=== PATIENT | male | born 1940 | race Caucasian/White ===

== ENCOUNTER 2019-04-08 10:38 | Inpatient (IN) ==
[2019-04-08] MEDS ORDERED: PIPERACILLIN/TAZOBACTAM 4.5 GM/120 ML BAG IV ONE (11:45)
[2019-04-08] MEDS ORDERED: VANCOMYCIN CONSULT ACTIVE PRN ×2 (11:45→14:32)
[2019-04-08] MEDS ORDERED: VANCOMYCIN HCL 1,750 MG in SODIUM CHLORIDE 0.9% 500 ML IV ONE (11:45)
[2019-04-08] MEDS ORDERED: SODIUM CHLORIDE 0.9% 1000ML 1,000 ML IV ONE (11:45)
[2019-04-08] MEDS ORDERED: ONDANSETRON INJ 2 MG/ML 2 ML VIAL IV STA ×2 (11:45→13:17)
[2019-04-08] MEDS ORDERED: PIPERACILL/TAZOBAC CONSULT ACTIVE PRN ×2 (11:45→14:32)
--- NOTE | 2019-04-08 11:45 | Emergency Department Note ---
History of Present Illness General Chief Complaint: Infection, Wound Stated Complaint: INFECTION ON LEFT FOOT AND TOES,OPEN WOUND Source: patient Mode of arrival: ambulatory Limitations: no limitations History of Present Illness Onset (ago): month(s) (3) Extremity Location: Left: foot Place: + home Patient tetanus UTD: Yes Context: + other Associated symptoms: + pain, + nausea/vomiting and + other (Weakness, 12 pound weight loss) This 78-year-old male patient presents emergency department today, ambulatory, after being seen and evaluated by his microwave supervisor, Dr. Anne. The patient is currently being treated as an outpatient for an osteomyelitis of the left foot, and did have surgery of the left fifth metatarsal on January 12 and February 25. The patient states he has been on Cipro and Bactrim after consultation with Dr. Dias of infectious disease and continues to have worsening pain which is spreading, redness, difficulty with wound healing, and also reports feeling weak with nausea and vomiting which developed approximately 5 days ago. The patient does report a 12 pound weight loss in the past 2 weeks due to how he is feeling. The patient was seen by his microwave supervisor earlier today and sent to the ED for admission for surgery tonight. The patient is a type II diabetic and has not gotten his medications today. He last ate a protein shake this morning. The patient denies any fevers, but does report body aches, chills, the nausea, and vomiting. I did speak with the patient's microwave supervisor, Dr. nAne. He advised that the patient is currently being managed for an osteomyelitis of the fifth metatarsal and digit and is failing outpatient oral therapy. He requested the patient remain n.p.o., get a noncontrast CT scan to evaluate for possible osteomyelitis in the first digit and get admitted for surgery this evening. He did request we start the patient on bank and Zosyn as well. Home Medications Home Medications Medication Instructions Recorded Confirmed Type finasteride [Proscar] 5 mg PO QAM 02/10/19 04/08/19 History glimepiride 2 mg PO BID 02/10/19 04/08/19 History ibuprofen 600 mg PO Q6H PRN 02/10/19 04/08/19 History lisinopril 5 mg PO QPM 02/10/19 04/08/19 History magnesium 250 mg PO BID 02/10/19 04/08/19 History metformin 500 mg PO BID 02/10/19 04/08/19 History acetaminophen-codeine 1 tab PO Q8H PRN 04/08/19 04/08/19 History ciprofloxacin HCl 500 mg PO BID 04/08/19 04/08/19 History sulfamethoxazole-trimethoprim 1 tab PO BID 04/08/19 04/08/19 History Allergies Allergy/AdvReac Type Severity Reaction Status Date / Time No Known Allergies Allergy Verified 02/10/19 10:55 Past Med/Surg History Medical History BPH (benign prostatic hyperplasia) DVT (deep venous thrombosis) 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-NO ISSUES SINCE Diabetes mellitus, type 2 Hypertension Surgical History Fusion of spine LUMBAR-2011 H/O excision of mass CYST REMOVAL VERTEBRAE H/O foot surgery LEFT 12/2018 [facility]-POST OP INFECTION DEVELOPED History of colonoscopy X MULTIPLE History of total knee replacement R/L Social History Preferred Language: [place] Communication Ability: Effective Beliefs That Will Affect Care: None Current Living Situation: Alone Feels Safe at Home: Yes Smoking Status: Never smoker Second Hand Exposure: No Hx Alcohol Use: No Hx Substance Use: No Review of Systems A total of 10 systems reviewed and were otherwise negative Physical Exam Vital Signs Vital Signs - 24 hr 04/08/19 10:53 04/08/19 12:37 04/08/19 12:38 Temperature 36.7 C Temperature Source Oral Sepsis Recent Fever Within 48 Hours No Sepsis New/Unexplained Change in Mental Status No Sepsis Action Taken by Nursing No Action Required Pulse Rate 80 64 64 Pulse Rate from SpO2 Sensor 64 Pulse Rhythm Regular Respiratory Rate 20 20 20 Respiratory Effort / Characteristics Non-Labored Spontaneous Respiratory Depth Normal Blood Pressure 99/63 L 95/51 L Blood Pressure Mean 75 65 Blood Pressure Position Sitting Pulse Oximetry 98 99 98 Oxygen Delivery Method Room Air Room Air 04/08/19 12:39 04/08/19 12:40 04/08/19 12:50 Temperature Temperature Source Sepsis Recent Fever Within 48 Hours Sepsis New/Unexplained Change in Mental Status Sepsis Action Taken by Nursing Pulse Rate 64 63 65 Pulse Rate from SpO2 Sensor 63 63 65 Pulse Rhythm Respiratory Rate 21 21 16 Respiratory Effort / Characteristics Respiratory Depth Blood Pressure Blood Pressure Mean Blood Pressure Position Pulse Oximetry 99 98 99 Oxygen Delivery Method 04/08/19 13:06 04/08/19 13:08 04/08/19 13:10 Temperature Temperature Source Sepsis Recent Fever Within 48 Hours Sepsis New/Unexplained Change in Mental Status Sepsis Action Taken by Nursing Pulse Rate 69 68 68 Pulse Rate from SpO2 Sensor 68 68 Pulse Rhythm Respiratory Rate 19 19 18 Respiratory Effort / Characteristics Respiratory Depth Blood Pressure 160/133 H Blood Pressure Mean 142 Blood Pressure Position Pulse Oximetry 99 100 Oxygen Delivery Method VITALS: Vitals are noted on the nurse's note and reviewed by myself. Vital signs stable. GENERAL: This is a 78-year-old white male, in no acute distress, nondiaphoretic, well-developed well-nourished. SKIN: Mild erythema of the lateral aspect of the distal left foot and fourth and fifth metatarsals. There is some purulence between the fourth and fifth metatarsals with bandaging in place. The previous incision site on the lateral aspect of the foot does appear to be healing nicely. There is tenderness extending into the fourth and fifth metatarsal as well as the fourth and fifth digits. The skin was otherwise without rashes, erythema, edema, or bruising. There is no tenting of the skin. Capillary reflex less than 2 seconds. HEAD: Normocephalic atraumatic. EARS: External auditory canals clear, tympanic membranes pearly baxter without erythema or effusion bilaterally. EYES: Pupils equal round and reactive to light and accommodation. Conjunctivae without injection, sclerae without icterus. Extraocular movements intact. NOSE: Patent, turbinates without inflammation or discharge. No sinus tenderness. MOUTH: Mucous membranes moist. Tonsils are not enlarged. Pharynx without erythema or exudate. Uvula midline. Airway patent. Tongue does not deviate. NECK: Supple without nuchal rigidity. No lymphadenopathy. No thyromegaly. Cervical spine is nontender. No JVD. HEART: Regular rate and rhythm without murmurs gallops or rubs. LUNGS: Clear to auscultation bilaterally without wheezes, rales or rhonchi. No dullness to percussion. No retractions or accessory muscle use. ABDOMEN: Positive bowel sounds x 4. Normal tympanic percussion. Soft, nontender, without masses or organomegaly. Barrientos sign negative. No guarding or rebound tenderness. MUSCULOSKELETAL: No muscle atrophy, erythema, or edema noted. Full range of motion without joint tenderness in all extremities. No tenderness to palpation. Limping gait. Strength 5/5 throughout. NEURO: Patient was alert and oriented to person place and time. Normal sensation to light and sharp touch. Deep tendon reflexes 2+ throughout. No focal neurological deficits. Course The patient was seen and evaluated as above. I spoke with Dr. Anne. See HPI for details. [facility] Provided her with Dr. Anne's contact information. IV access obtained, labs drawn. Imaging performed and reviewed by myself and radiologist as above. Labs reviewed by myself. I discussed the findings with the patient at bedside. I discussed the case with my attending. She did see and evaluate the patient. [facility] Please see hospitalist and podiatry dictation regarding ongoing management care of this patient. Administered Medications Discontinued Medications Piperacillin Sod/Tazobactam Sod (Zosyn) 4.5 gm in 120 mls @ 240 mls/hr IV NOW ONE Stop: 04/08/19 12:14 Last Admin: 04/08/19 12:31 Dose: 240 mls/hr Documented by: [id number] Sodium Chloride (Nss 1000ml) 1,000 mls @ 999 mls/hr IV .Q1H1M ONE Stop: 04/08/19 12:45 Last Admin: 04/08/19 12:31 Dose: 999 mls/hr Documented by: [id number] Ondansetron HCl (Zofran) 4 mg IV NOW STA Stop: 04/08/19 11:46 Last Admin: 04/08/19 12:31 Dose: 4 mg Documented by: [id number] Medical Decision Making Differential Diagnosis + laceration, + abscess, + abrasion, + avulsion of skin, + fracture, + dislocation, + joint compromise, + infection, + soft tissue injury, + vascular compromise and + compartment syndrome cellulitis, abscess, DVT, superficial thrombus, septic joint, necrotizing fasciitis, burn, dermatitis, impetigo, erythema multiforme, bite, osteomyelitis, Voss-Cody Syndrome, gangrene, sepsis, malignancy, and others Home Medications Current Medication List: was personally reviewed by me Laboratory Data Attestation: I reviewed the patient's lab results. Mild anemia with a hemoglobin of 12.6. No significant leukocytosis. No thrombocytopenia. Coags normal. Creatinine elevated at 2.36. Electrolytes without significant abnormality. ESR elevated at 27. CRP elevated at 0.32. Lactic acid 1.3. Blood cultures pending. Result diagrams: 04/08/19 12:28 04/08/19 12: Lab Results 04/08/19 04/08/19 04/08/19 Range/Units 12:28 12: 12: WBC 4.32 L (4.8-10.8) K/uL RBC 4.05 L (4.7-6.1) M/uL Hgb 12.6 L (14.0-18.0) g/dL Hct 36.8 L (42-52) % MCV 90.9 (80-100) fL MCH 31.1 (25-34) pg MCHC 34.2 (32-36) g/dL RDW Std Deviation 45.2 (36.4-46.3) fL RDW Coeff of Antonia 13.8 (11.5-14.5) % Plt Count 171 (130-400) K/uL MPV 8.9 (7.4-10.4) fL Immature Gran % (Auto) 0.0 % Neut % (Auto) 66.4 % Lymph % (Auto) 21.3 % [place] % (Auto) 11.6 % Eos % (Auto) 0.5 % Baso % (Auto) 0.2 % Immature Gran # (Auto) 0.00 (0.00-0.02) K/uL Neut # (Auto) 2.87 (1.4-6.5) K/uL Lymph # (Auto) 0.92 L (1.2-3.4) K/uL [place] # (Auto) 0.50 (0.11-0.59) K/uL Eos # (Auto) 0.02 (0-0.5) K/uL Baso # (Auto) 0.01 (0-0.2) K/uL ESR 27 H (0-14) mm/hr PT 10.8 (9.0-12.0) Seconds INR 1.1 (0.9-1.1) APTT 26.0 (21.0-31.0) Seconds PTT Ratio 1.0 Sodium (136-145) mmol/L Potassium (3.5-5.1) mmol/L Chloride (98-107) mmol/L Carbon Dioxide (21-32) mmol/L Anion Gap (3-11) BUN (7-18) mg/dl Creatinine (0.6-1.4) mg/dl Est Cr Clr Drug Dosing ml/min Est GFR ( Amer) Est GFR (Non-Af Amer) BUN/Creatinine Ratio (10-20) Glucose (70-99) mg/dl Lactate (0.4-2.0) mmol/L Calcium (8.5-10.1) mg/dl Total Bilirubin (0.2-1) mg/dl AST (15-37) U/L ALT (12-78) U/L Alkaline Phosphatase (45-117) U/L C-Reactive Protein (0-0.29) mg/dl Total Protein (6.4-8.2) gm/dl Albumin (3.4-5.0) gm/dl Globulin (2.5-4.0) gm/dl Albumin/Globulin Ratio (0.9-2) 04/08/19 04/08/19 Range/Units 12:28 12:28 WBC (4.8-10.8) K/uL RBC (4.7-6.1) M/uL Hgb (14.0-18.0) g/dL Hct (42-52) % MCV (80-100) fL MCH (25-34) pg MCHC (32-36) g/dL RDW Std Deviation (36.4-46.3) fL RDW Coeff of Antonia (11.5-14.5) % Plt Count (130-400) K/uL MPV (7.4-10.4) fL Immature Gran % (Auto) % Neut % (Auto) % Lymph % (Auto) % [place] % (Auto) % Eos % (Auto) % Baso % (Auto) % Immature Gran # (Auto) (0.00-0.02) K/uL Neut # (Auto) (1.4-6.5) K/uL Lymph # (Auto) (1.2-3.4) K/uL [place] # (Auto) (0.11-0.59) K/uL Eos # (Auto) (0-0.5) K/uL Baso # (Auto) (0-0.2) K/uL ESR (0-14) mm/hr PT (9.0-12.0) Seconds INR (0.9-1.1) APTT (21.0-31.0) Seconds PTT Ratio Sodium 135 L (136-145) mmol/L Potassium 5.0 (3.5-5.1) mmol/L Chloride 107 (98-107) mmol/L Carbon Dioxide 20 L (21-32) mmol/L Anion Gap 8.0 (3-11) BUN 62 H (7-18) mg/dl Creatinine 2.36 H (0.6-1.4) mg/dl Est Cr Clr Drug Dosing 27.1 ml/min Est GFR ( Amer) 29.7 Est GFR (Non-Af Amer) 25.6 BUN/Creatinine Ratio 26.2 H (10-20) Glucose 102 H (70-99) mg/dl Lactate 1.3 (0.4-2.0) mmol/L Calcium 9.1 (8.5-10.1) mg/dl Total Bilirubin 0.4 (0.2-1) mg/dl AST 23 (15-37) U/L ALT 36 (12-78) U/L Alkaline Phosphatase 85 (45-117) U/L C-Reactive Protein 0.32 H (0-0.29) mg/dl Total Protein 7.3 (6.4-8.2) gm/dl Albumin 3.7 (3.4-5.0) gm/dl Globulin 3.6 (2.5-4.0) gm/dl Albumin/Globulin Ratio 1.0 (0.9-2) Imaging Data Radiologist's Impression: XR chest 1V portable CLINICAL HISTORY: pre-op, fatigue dyspnea COMPARISON STUDY: 04/15/2013 FINDINGS: The bones soft tissues and hemidiaphragms are normal. The cardiome diastinal silhouette is normal. The lungs are clear. The pulmonary vasculature is normal. IMPRESSION: Negative chest. The above report was generated using voice recognition software. It may contain grammatical, syntax or spelling errors. Electronically signed by: Brandin Orozco M.D. 04/08/2019 12:[address] foot LT wo con CLINICAL HISTORY: 78 years-old Male presenting with hx. osteo, pre-op, spreading infxn 12/26. TECHNIQUE: Multidetector CT of the left foot was performed without the use of intravenous contrast. IV contrast: None. One or more dose lowering techniques were used consistent with the principles of ALARA (as low as reasonably achievable), including automatic exposure control, mA or kV adjustment to individual patient size, and/or use of iterative reconstruction. COMPARISON: Plain radiograph from 02/25/2019 and MR from 02/03/2019. CT DOSE (mGy.cm): The estimated cumulative dose is 202.26 mGy.cm. FINDINGS: Director Facilities Maintenance topogram: Unremarkable. Postsurgical changes of resection of the fifth metatarsal head versus osseous dissolution. No increased osseous erosion. There is medial subluxation of the proximal phalanx of the fifth toe relative to the fifth metatarsal as seen on prior exams. There is extensive regional soft tissue infiltration and overlying ulceration. The cortex of the distal fifth metatarsal is likely in continuity with the overlying ulceration. No additional site of osteolysis. Osteopenia likely present. No acute fracture or acute-appearing malalignment. Advanced degenerative changes at the ankle mortise both medially and laterally. Atherosclerosis. Diffuse fatty atrophy of the musculature. No gross evidence of a fluid collection. IMPRESSION: Chronic findings of osseous dissolution versus resection of the fifth metatarsal head with chronic subluxation at the fifth metatarsophalangeal joint. Ulceration immediately overlying the residual distal fifth metatarsal, which is likely in communication with the underlying cortex suggestive of chronic osteomyelitis. There has been no significant increase in osteolysis to suggest progression of infection. No apparent involvement of the fifth toe or an additional site. Electronically signed by: Randall Blackmon M.D. 04/08/2019 1:17 PM ECG Data Attestation: I personally reviewed and interpreted this ECG as follows: Indication: vomiting and weakness Rate (beats per minute): 67 Rhythm: normal sinus Findings: no ST elevation, no acute ischemic change and no ectopy Comparison ECG Date: from (04/01/19) Change: no significant change Blood Pressure Blood Pressure Findings: Low blood pressure MDM Narrative This 78-year-old male patient presents emergency department today with complaints of osteomyelitis in the left foot. The patient is currently being followed by Dr. Anne, podiatry. He was sent to the ED by Dr. Anne for a dmission and surgery this evening due to the osteomyelitis. He also requested IV antibiotics. I did speak with Dr. Anne and initiated preop work-up as well as IV Vanco and Zosyn. The patient's laboratory evaluation does show elevation of the inflammatory markers, but no significant leukocytosis. Lactic acid was normal and CT imaging of the foot shows chronic findings of osseous disillusion versus resection of the fifth metatarsal head with chronic subluxation at the fifth MTP joint with an ulceration immediately overlying the residual distal fifth metatarsal, suggestive of chronic osteomyelitis. The patient will be admitted under the hospitalist service for IV antibiotics and will likely undergo surgery by Dr. Anne this evening. Please see their dictations regarding ongoing management care of this patient. The chart was completed utilizing [employer] Speech voice recognition software. Grammatical errors, random word insertions, pronoun errors, and incomplete sentences are an occasional consequence of this system due to software limitations, ambient noise, and hardware issues. Any formal questions or concerns about the content, text, or information contained within the body of this dictation should be directly addressed to the provider for clarification. Impression & Plan Osteomyelitis, Weakness, Nausea & vomiting Discharge Plan Visit Data Chief Complaint: Infection, Wound Stated Complaint: INFECTION ON LEFT FOOT AND TOES,OPEN WOUND ED Provider: Rani Gomes ED Midlevel Provider: Christine Fierro Discharge Problem: Osteomyelitis, Weakness, Nausea & vomiting Patient Disposition: Admitted As Inpatient Condition: Good Discharge Instructions Interventions: ED Discharge Assessment Last Done: 04/08/19 13:15 Forms Stand Alone Forms: My [facility] Prescriptions Prescriptions: No Action acetaminophen-codeine 300-30 mg tablet 1 tab PO Q8H PRN (Reason: Pain) RF: 0 ciprofloxacin HCl 500 mg tablet 500 mg PO BID RF: 0 sulfamethoxazole-trimethoprim 800-160 mg tablet 1 tab PO BID RF: 0 glimepiride 2 mg Tablet 2 mg PO BID RF: 0 lisinopril 5 mg Tablet 5 mg PO QPM RF: 0 finasteride [Proscar] 5 mg Tablet 5 mg PO QAM RF: 0 metformin 500 mg Tablet 500 mg PO BID RF: 0 magnesium 250 mg Tablet 250 mg PO BID RF: 0 ibuprofen 200 mg Tablet 600 mg PO Q6H PRN (Reason: Pain) RF: 0 Referrals Referrals: Beny Araujo MD [Primary Care Provider] -
--- NOTE | 2019-04-08 12:08 | XRay Report ---
XR chest 1V portable CLINICAL HISTORY: pre-op, fatigue dyspnea COMPARISON STUDY: 04/15/2013 FINDINGS: The bones soft tissues and hemidiaphragms are normal. The cardiomediastinal silhouette is n ormal. The lungs are clear. The pulmonary vasculature is normal. IMPRESSION: Negative chest. The above report was generated using voice recognition software. It may contain grammatical, syntax or spelling errors. Electronically signed by: Brandin Orozco M.D. 04/08/2019 12:07 PM
[2019-04-08 12:42] LABS: Basophils # (auto) 0.01 K/uL (0-0.2); Basophils % (auto) 0.2 %; Eosinophils # (auto) 0.02 K/uL (0-0.5); Eosinophils % (auto) 0.5 %; Hematocrit (blood only) 36.8 % (42-52); Hemoglobin 12.6 g/dL (14.0-18.0); Lymphocytes # (auto) 0.92 K/uL (1.2-3.4); Lymphocytes % (auto) 21.3 %; Mean Corpuscular Hgb Conc 34.2 g/dL (32-36); Mean Corpuscular Volume 90.9 fL (80-100); Mean Platelet Volume 8.9 fL (7.4-10.4); Monocytes % (auto) 11.6 %; Neutrophils # (auto) 2.87 K/uL (1.4-6.5); Neutrophils % (auto) 66.4 %; Platelet Count 171 K/uL (130-400); RDW Coefficient of Variation 13.8 % (11.5-14.5); RDW Standard Deviation 45.2 fL (36.4-46.3); Red Blood Count 4.05 M/uL (4.7-6.1); White Blood Count 4.32 K/uL (4.8-10.8)
[2019-04-08 12:56] LABS: INR 1.1 (0.9-1.1); Prothrombin Time 10.8 Seconds (9.0-12.0)
[2019-04-08 13:01] LABS: Albumin Level 3.7 gm/dl (3.4-5.0); BUN Creatinine Ratio 26.2 (10-20); C Reactive Protein 0.32 mg/dl (0-0.29); Calcium 9.1 mg/dl (8.5-10.1); Creatinine Clr Calc Pharmacy 27.1 ml/min; Est GFR (African American) 29.7; Est GFR (Non-African American) 25.6
[2019-04-08 13:04] LABS: Bilirubin,Total 0.4 mg/dl (0.2-1); Globulin 3.6 gm/dl (2.5-4.0); Total Protein 7.3 gm/dl (6.4-8.2)
--- NOTE | 2019-04-08 13:11 | History & Physical Report ---
Date of Service April 08, 2019 Assessment & Plan (1) Wound of foot: Patient with recent surgery on 25 February presenting with worsening pain and unhealing wound. Concern for osteomyelitis. Presently afebrile, hemodynamically stable, non-toxic in appearance -Admit to medical floor -Vancomycin and Zosyn -Podiatry consultation - Dr. Anne - appreciate assistance -Pain control with Oxycodone and Morphine PRN -Zofran PRN -Gentle IVF Present on Admission?: Yes (2) Diabetes: Fairly well controlled, AIC=7.2 in December -Hold oral agents while inpatient -Lantus 5u BID with ISS Present on Admission?: Yes (3) Hypertension: Blood pressure well controlled -Continue Lisinopril -Continue to monitor Present on Admission?: Yes (4) BPH (benign prostatic hyperplasia): Symptoms well controlled -Continue Proscar F/E/N- NSS at 100mL/hr x 2 liters, monitor electrolytes and correct as needed, continue PO mag, NPO for now Ppx - SCDs/TEDS Code - DNR per discussion with patient Dispo - Admit to medical floor History of Present Illness Chief Complaint: left foot unhealing wound ?osteomyelitis Primary Care Provider: Beny Araujo MD Mr Michael Mckinney is a pleasant 78yo C male with history of HTN, well controlled DM-II (Last A1C=7.2 in December 2018). Patient had surgery performed on his left 5th toe on 12 January 2019 for removal of a corn. 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 Anne. The surgery was well tolerated. The patient has been wearing a walking boot. He has home nursing and wound care QOD. He has been on Cipro and Bactrim for possible infection. He reports severe pain in the toe, difficulty with ambulation with pain from his toe to the heel. Also with unhealing wound. He denies fevers/chills/nausea/vomiting/discharge or foul odor from the toe. Does admit to some fatigue/malaise/poor appetite and unintentional 10-12# weight loss over the last 3 weeks. Case was discussed with Dr. Anne by ER staff - patient is to proceed to the OR this evening. ER Course: Zofran, Zosyn, Vancomycin, NSS Allergies Allergy/AdvReac Type Severity Reaction Status Date / Time No Known Allergies Allergy Verified 02/10/19 10:55 Home Medications Home Medications Medication Instructions Recorded Confirmed Type finasteride [Proscar] 5 mg PO QAM 02/10/19 04/08/19 History glimepiride 2 mg PO BID 02/10/19 04/08/19 History ibuprofen 600 mg PO Q6H PRN 02/10/19 04/08/19 History lisinopril 5 mg PO QPM 02/10/19 04/08/19 History magnesium 250 mg PO BID 02/10/19 04/08/19 History metformin 500 mg PO BID 02/10/19 04/08/19 History acetaminophen-codeine 1 tab PO Q8H PRN 04/08/19 04/08/19 History ciprofloxacin HCl 500 mg PO BID 04/08/19 04/08/19 History sulfamethoxazole-trimethoprim 1 tab PO BID 04/08/19 04/08/19 History Past Med/Surg History Medical History BPH (benign prostatic hyperplasia) DVT (deep venous thrombosis) 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-NO ISSUES SINCE Diabetes mellitus, type 2 Hypertension Surgical History Fusion of spine LUMBAR-2011 H/O excision of mass CYST REMOVAL VERTEBRAE H/O foot surgery LEFT 12/2018 [facility]-POST OP INFECTION DEVELOPED History of colonoscopy X MULTIPLE History of total knee replacement R/L Social History Preferred Language: Croatian Communication Ability: Effective Beliefs That Will Affect Care: None Current Living Situation: Alone Feels Safe at Home: Yes Smoking Status: Never smoker Second Hand Exposure: No Hx Alcohol Use: No Hx Substance Use: No Review of Systems Review of Systems: All systems reviewed & are unremarkable except as noted in HPI & below As above Physical Exam Physical Exam: General: patient resting comfortably, NAD, non-toxic in appearance, AA&O x 4 Skin: warm, dry, no rashes or lesions HEENT: NC/AT, PERRL, EOMI, anicteric sclera, conjunctiva without injection, external ear normal to inspection and nontender, nares patent, moist mucus membranes, dentition intact, no oropharyngeal lesions, neck supple, trachea midline, no LAD, no thyromegaly, no JVD +facial twitching at left eye - common for patient Heart: +S1/S2, regular, no m/r/g Lungs: equal air entry bilaterally, no rales/rhonchi/wheezes Abd: +BS, soft, NT/ND, no masses/organomegaly/ascites Ext: warm, 2+ pulses in UE/LE bilaterally, no clubbing/cyanosis or edema, dressing over left foot, 5th digit mildly red, tender, no discharge/odor, no crepitus/bullae or streaking Neuro: nonfocal, patient AA&O x 4, speech intact, no facial droop, moving all extremities on command with equal strength 5/5 Results & Data Vital Signs (Past 12 Hours) Vital Signs Temp Pulse Resp BP Pulse Ox 04/08/19 12:38 64 20 98 04/08/19 12:37 64 20 95/51 L 99 04/08/19 10:53 36.7 C 80 20 99/63 L 98 Laboratory Results Lab Results 04/08/19 04/08/19 04/08/19 Range/Units 12:28 12:28 12:28 WBC 4.32 L (4.8-10.8) K/uL RBC 4.05 L (4.7-6.1) M/uL Hgb 12.6 L (14.0-18.0) g/dL Hct 36.8 L (42-52) % MCV 90.9 (80-100) fL MCH 31.1 (25-34) pg MCHC 34.2 (32-36) g/dL RDW Std Deviation 45.2 (36.4-46.3) fL RDW Coeff of Antonia 13.8 (11.5-14.5) % Plt Count 171 (130-400) K/uL MPV 8.9 (7.4-10.4) fL Immature Gran % (Auto) 0.0 % Neut % (Auto) 66.4 % Lymph % (Auto) 21.3 % [place] % (Auto) 11.6 % Eos % (Auto) 0.5 % Baso % (Auto) 0.2 % Immature Gran # (Auto) 0.00 (0.00-0.02) K/uL Neut # (Auto) 2.87 (1.4-6.5) K/uL Lymph # (Auto) 0.92 L (1.2-3.4) K/uL [place] # (Auto) 0.50 (0.11-0.59) K/uL Eos # (Auto) 0.02 (0-0.5) K/uL Baso # (Auto) 0.01 (0-0.2) K/uL ESR 27 H (0-14) mm/hr PT 10.8 (9.0-12.0) Seconds INR 1.1 (0.9-1.1) APTT 26.0 (21.0-31.0) Seconds PTT Ratio 1.0 Sodium (136-145) mmol/L Potassium (3.5-5.1) mmol/L Chloride (98-107) mmol/L Carbon Dioxide (21-32) mmol/L Anion Gap (3-11) BUN (7-18) mg/dl Creatinine (0.6-1.4) mg/dl Est Cr Clr Drug Dosing ml/min Est GFR ( Amer) Est GFR (Non-Af Amer) BUN/Creatinine Ratio (10-20) Glucose (70-99) mg/dl Lactate (0.4-2.0) mmol/L Calcium (8.5-10.1) mg/dl Total Bilirubin (0.2-1) mg/dl AST (15-37) U/L ALT (12-78) U/L Alkaline Phosphatase (45-117) U/L C-Reactive Protein (0-0.29) mg/dl Total Protein (6.4-8.2) gm/dl Albumin (3.4-5.0) gm/dl Globulin (2.5-4.0) gm/dl Albumin/Globulin Ratio (0.9-2) 04/08/19 04/08/19 Range/Units 12:28 12:28 WBC (4.8-10.8) K/uL RBC (4.7-6.1) M/uL Hgb (14.0-18.0) g/dL Hct (42-52) % MCV (80-100) fL MCH (25-34) pg MCHC (32-36) g/dL RDW Std Deviation (36.4-46.3) fL RDW Coeff of Antonia (11.5-14.5) % Plt Count (130-400) K/uL MPV (7.4-10.4) fL Immature Gran % (Auto) % Neut % (Auto) % Lymph % (Auto) % [place] % (Auto) % Eos % (Auto) % Baso % (Auto) % Immature Gran # (Auto) (0.00-0.02) K/uL Neut # (Auto) (1.4-6.5) K/uL Lymph # (Auto) (1.2-3.4) K/uL [place] # (Auto) (0.11-0.59) K/uL Eos # (Auto) (0-0.5) K/uL Baso # (Auto) (0-0.2) K/uL ESR (0-14) mm/hr PT (9.0-12.0) Seconds INR (0.9-1.1) APTT (21.0-31.0) Seconds PTT Ratio Sodium 135 L (136-145) mmol/L Potassium 5.0 (3.5-5.1) mmol/L Chloride 107 (98-107) mmol/L Carbon Dioxide 20 L (21-32) mmol/L Anion Gap 8.0 (3-11) BUN 62 H (7-18) mg/dl Creatinine 2.36 H (0.6-1.4) mg/dl Est Cr Clr Drug Dosing 27.1 ml/min Est GFR ( Amer) 29.7 Est GFR (Non-Af Amer) 25.6 BUN/Creatinine Ratio 26.2 H (10-20) Glucose 102 H (70-99) mg/dl Lactate 1.3 (0.4-2.0) mmol/L Calcium 9.1 (8.5-10.1) mg/dl Total Bilirubin 0.4 (0.2-1) mg/dl AST 23 (15-37) U/L ALT 36 (12-78) U/L Alkaline Phosphatase 85 (45-117) U/L C-Reactive Protein 0.32 H (0-0.29) mg/dl Total Protein 7.3 (6.4-8.2) gm/dl Albumin 3.7 (3.4-5.0) gm/dl Globulin 3.6 (2.5-4.0) gm/dl Albumin/Globulin Ratio 1.0 (0.9-2) Diagnostic Findings XR chest 1V portable CLINICAL HISTORY: pre-op, fatigue dyspnea COMPARISON STUDY: 04/15/2013 FINDINGS: The bones soft tissues and hemidiaphragms are normal. The cardiomediastinal silhouette is normal. The lungs are clear. The pulmonary vasculature is normal. IMPRESSION: Negative chest. The above report was generated using voice recognition software. It may contain grammatical, syntax or spelling errors. Electronically signed by: Brandin Orozoc M.D. 04/08/2019 12:07 PM Dictated: 04/08/19 1206 Transcribed: 04/08/19 1206 ECG Additional Comments: NSR at 67bpm, normal axis and intervals, no acute ischemic changes, Unchanged from prior study March 2013 Code Status & VTE Plan Code Status DNR per discussion with patient VTE Prophylaxis Plan VTE Prophylaxis will be ordered: Yes PG Care Time/CCT Total # of Minutes Spent Total Time Spent with Patient: Total time spent is greater than 50% in coordination of care (as documented) at patient's floor/unit and/or counseling patient: (1) Diabetes Diabetes mellitus type: type 2 Diabetes mellitus long-term insulin use: with long-term use Diabetes mellitus complication status: with skin complications Diabetes mellitus complication detail: with foot ulcer Qualified Code(s): E11.621 - Type 2 diabetes mellitus with foot ulcer; L97.509 - Non-pressure chronic ulcer of other part of unspecified foot with unspecified severity; Z79.4 - salvage determiner (current) use of insulin (2) Hypertension Hypertension type: essential hypertension Qualified Code(s): I10 - Essential (primary) hypertension (3) BPH (benign prostatic hyperplasia) Lower urinary tract symptom presence: symptoms absent Qualified Code(s): N40.0 - Benign prostatic hyperplasia without lower urinary tract symptoms
--- NOTE | 2019-04-08 13:18 | CT Scan Report ---
CT foot LT wo con CLINICAL HISTORY: 78 years-old Male presenting with hx. osteo, pre-op, spreading infxn 12/26. TECHNIQUE: Multidetector CT of the left foot was performed without the use of intravenous contrast. I V contrast: None. One or more dose lowering techniques were used consistent with the principles of AL SARVANI (as low as reasonably achievable), including automatic exposure control, mA or kV adjustment to i ndividual patient size, and/or use of iterative reconstruction. COMPARISON: Plain radiograph from 02/25/2019 and MR from 02/03/2019. CT DOSE (mGy.cm): The estimated cumulative dose is 202.26 mGy.cm. FINDINGS: Assignment Agent topogram: Unremarkable. Postsurgical changes of resection of the fifth metatarsal head versus osseous dissolution. No increas ed osseous erosion. There is medial subluxation of the proximal phalanx of the fifth toe relative to the fifth metatarsal as seen on prior exams. There is extensive regional soft tissue infiltration and overlying ulceration. The cortex of the distal fifth metatarsal is likely in continuity with the ove rlying ulceration. No additional site of osteolysis. Osteopenia likely present. No acute fracture or acute-appearing mal alignment. Advanced degenerative changes at the ankle mortise both medially and laterally. Atherosclerosis. Diffuse fatty atrophy of the musculature. No gross evidence of a fluid collection. IMPRESSION: Chronic findings of osseous dissolution versus resection of the fifth metatarsal head with chronic marx bluxation at the fifth metatarsophalangeal joint. Ulceration immediately overlying the residual dista l fifth metatarsal, which is likely in communication with the underlying cortex suggestive of chronic osteomyelitis. There has been no significant increase in osteolysis to suggest progression of infect ion. No apparent involvement of the fifth toe or an additional site. Electronically signed by: Randall Blackmon M.D. 04/08/2019 1:17 PM
[2019-04-08] MEDS ORDERED: DOCUSATE SODIUM 100 MG CAP PO PRN (14:32)
[2019-04-08] MEDS ORDERED: MoRPHine SULFATE 2 MG/ML CARP IV PRN (14:32)
[2019-04-08] MEDS ORDERED: CARBOHYDRATES FOR HYPOGLYCEMIA PO PRN (14:32)
[2019-04-08] MEDS ORDERED: POLYETHYLENE (MIRALAX) 17 GM PACK PO PRN (14:32)
[2019-04-08] MEDS ORDERED: GLUCAGON FOR INJ 1 MG VIAL SQ PRN (14:32)
[2019-04-08] MEDS ORDERED: PIPERACILLIN/TAZOBACTAM 4.5 GM in DEXTROSE 5% 100 ML IV STA (14:32)
[2019-04-08] MEDS ORDERED: VANCOMYCIN HCL 1,000 MG in SODIUM CHLORIDE 0.9% 250 ML IV SCH (14:32)
[2019-04-08] MEDS ORDERED: TYLENOL #3 HOME PACK PO PRN (14:32)
[2019-04-08] MEDS ORDERED: GLUCOSE 10 TABS/TUBE PO PRN (14:32)
[2019-04-08] MEDS ORDERED: GLUCOSE 40% GEL 15 GM TUBE PO PRN (14:32)
[2019-04-08] MEDS ORDERED: DEXTROSE 50% 50 ML SYRINGE IV PRN (14:32)
[2019-04-08] MEDS: SODIUM CHLORIDE 0.9% 1000ML 1,000 ML IV SCH (14:45)
[2019-04-08] MEDS: ONDANSETRON INJ 2 MG/ML 2 ML VIAL IV PRN ×2 (14:47→20:39)
[2019-04-08 15:52] LABS: Appearance Urine Clear (Clear); Bilirubin Urine Negative (Negative); Blood Urine Negative (Negative); Color Urine Yellow; Glucose Urine UA Negative (Negative); Ketones Urine Trace (Negative); Leukocyte Esterase Urine Negative (Negative); Nitrite Urine Negative (Negative); Protein Urine Negative (Negative); Specific Gravity Urine 1.025 (1.000-1.030); Urobilinogen Urine Negative (Negative)
--- NOTE | 2019-04-08 16:50 | Podiatry Consultation ---
Date of Consultation April 08, 2019 Assessment & Plan (1) Osteomyelitis: Mr. Mckinney is a 78-year-old diabetic male well-known to me as an outpatient previous surgical intervention. I have been managing him for acute osteomyelitis via oral antibiotics as well as local wound care. He has det eriorated since his visit last week presented to me in the office this morning. He had subjective fevers with nausea and vomiting and loss of appetite. His left fourth digit appeared to be worsening was sent to the emergency department for further evaluation and work-up. At this point his labs appear to be normal though this could be clouded by his current oral antibiotics. His CT scan is negative for any acute osteomyelitis. No significant changes are noted from his previous MRI to the extremity. He is status post fifth ray amputation syndactylization of the fourth and fifth digits. He has a pinhead sized wound to the lateral foot that is being packed with plain gauze packing at this time it is improving. Clean granular base and no local signs of infection are present to this area. There is a wound to the fourth digit syndactylization site that has exposed capsule present. There is erythema calor and edema to the digit that is worsened since last week. This is significant for cellulitis and no osteomyelitis was seen on the CT as aforementioned. Originally the plan was for fourth and digital amputation in the operating room this evening however given the findings of his normalized labs as well as negative at this to the left foot we will attempt further salvage of the digits. This is to include a trip to the operating room for full-thickness debridement of the wound with application of the TheraSkin graft tomorrow evening. I recommend continuing [id number] vancomycin and Zosyn. A culture was obtained from the left fourth digit site today. These cultures will guide further antibiotic recommendations. I anticipate that he will be able to be discharged home with plan for IV infusion of Orbactiv for his previously cultured staphylococcal infection. Again this may change pending the results of the culture. For now Betadine wet-to-dry dressing has been placed to the left lower extremity after examination today. This can be left in place until his procedure is performed. He should be allowed to eat breakfast tomorrow morning as anticipated time to the OR should be around 6 PM tomorrow evening. I will discuss with the OR staff and see what is available from the operating room standpoint for start time. Please feel free to call me on my cell phone at [phone] with further questions. Thank you for the consultation allowing me to take part in this patient's care. Laterality: left Osteomyelitis location: foot Osteomyelitis t ype: unspecified type Qualified Code(s): M86.9 - Osteomyelitis, unspecified (2) Wound of foot: Present on Admission?: Yes (3) Diabetes: Diabetes mellitus type: type 2 Diabetes mellitus lobsterman insulin use: with senior care use Diabetes mellitus complication status: with skin complications Diabetes mellitus complication detail: with foot ulcer Qualified Code(s): E11.621 - Type 2 diabetes mellitus with foot ulcer; L97.509 - Non-pressure chronic ulcer of other part of unspecified foot with unspecified severity; Z79.4 - rn long term care (current) use of insulin History of Present Illness Attending Physician: Kasia Castellanos DO This is a 78-year-old male who is well-known to me as an outpatient with previous surgical intervention. He was last seen by me today in clinic and presented with worsening cellulitis of the left fourth digit as well as subjective nausea, recent vomiting and subjective fevers. He also states that he had loss of appetite over the past 3 days. He is being treated with oral antibiotics Cipro and Bactrim x4 weeks for confirmed active osteomyelitis of the left foot. He was sent to the emergency room for admission due to the cellulitis and above feelings of nausea vomiting and subjective fevers. Since seeing me this morning in the office, he relates significant decrease in pain in the left lower extremity. He has received both doses of IV vancomycin and Zosyn since arriving in the emergency department. He is also had an infection panel drawn as well as had a CT of the left lower extremity. Allergies Allergy/AdvReac Type Severity Reaction Status Date / Time No Known Allergies Allergy Verified 02/10/19 10:55 Home Medications Home Medications Medication Instructions Recorded Confirmed Type finasteride [Proscar] 5 mg PO QAM 02/10/19 04/08/19 History glimepiride 2 mg PO BID 02/10/19 04/08/19 History ibuprofen 600 mg PO Q6H PRN 02/10/19 04/08/19 History lisinopril 5 mg PO QPM 02/10/19 04/08/19 History magnesium 250 mg PO BID 02/10/19 04/08/19 History metformin 500 mg PO BID 02/10/19 04/08/19 History acetaminophen-codeine 1 tab PO Q8H PRN 04/08/19 04/08/19 History ciprofloxacin HCl 500 mg PO BID 04/08/19 04/08/19 History sulfamethoxazole-trimethoprim 1 tab PO BID 04/08/19 04/08/19 History Patient History Medical History BPH (benign prostatic hyperplasia) DVT (deep venous thrombosis) 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-NO ISSUES SINCE Diabetes mellitus, type 2 Hypertension Surgical History Fusion of spine LUMBAR-2011 H/O excision of mass CYST REMOVAL VERTEBRAE H/O foot surgery LEFT 12/2018 [facility]-POST OP INFECTION DEVELOPED History of colonoscopy X MULTIPLE History of total knee replacement R/L Social History Preferred Language: Mohawk Communication Ability: Effective Beliefs That Will Affect Care: None Current Living Situation: Alone Feels Safe at Home: Yes Smoking Status: Never smoker Second Hand Exposure: No Hx Alcohol Use: No Hx Substance Use: No Review of Systems Review of Systems: 12 system review of system was conducted and noted to be negative other than the above HPI. At this point he denies any nausea vomiting fevers or chills at bedside. Relates improved pain to the left lower extremity Physical Exam Physical Exam: He is alert and oriented to person place and time. He is in no acute distress. Seen resting comfortably at bedside today. He has intact pedal pulses to the bilateral lower extremity sensation is intact light touch. Left fourth digit is erythematous and edematous with pallor to the touch. There is a wound on the lateral aspect of the digit at previous site of surgical syndactylization with wound dehiscence. There is exposed capsule to the area. CT is negative for cortical erosions or acute osteomyelitis to this region. No purulence is expressed. Maceration around the borders is noted. Site of syndactylization of the fifth digit is well-healed at this point. There is a pinhead sized wound to the lateral foot at the site of previous marx rgical intervention. As noted previously today in the office the depth of the wound is approximately 0.5 cm with a completely granular base. This is significantly improved from previous measurements as an outpatient. Results & Data Vital Signs (Past 12 Hours) Vital Signs Temp Pulse Pulse Resp BP BP Pulse Ox 04/08/19 15:11 35.5 C L 70 20 96/60 L 98 04/08/19 14:32 36.4 C L 71 16 116/72 958 H 04/08/19 13:50 65 13 100 04/08/19 13:40 66 15 100 04/08/19 13:30 71 18 102/59 L 98 04/08/19 13:20 65 16 100 04/08/19 13:10 68 18 100 04/08/19 13:08 68 19 160/133 H 99 04/08/19 13:06 69 19 04/08/19 12:50 65 16 99 04/08/19 12:40 63 21 98 04/08/19 12:39 64 21 99 04/08/19 12:38 64 20 98 04/08/19 12:37 64 20 95/51 L 99 04/08/19 10:53 36.7 C 80 20 99/63 L 98
[2019-04-08] MEDS: PIPERACILLIN/TAZOBACTAM 3.375 GM in DEXTROSE 5% 100 ML IV SCH (17:35)
[2019-04-08] MEDS: INSULIN ASPART 100 UNITS/ML 3 ML PEN SC SCH ×2 (18:27→20:30)
[2019-04-08] MEDS: INSULIN GLARGINE SOLOSTAR 100 UNITS/ML 3 ML PEN SC SCH (20:31)
[2019-04-08] MEDS: LISINOPRIL 5 MG TAB PO SCH (20:32)
[2019-04-08] MEDS: MAGNESIUM OXIDE 400 MG TAB PO SCH (20:32)
[2019-04-08] MEDS: OXYCODONE HCL IR 5 MG TAB (IMMEDIATE RELEASE) PO PRN (21:40)
[2019-04-09] MEDS: SODIUM CHLORIDE 0.9% 1000ML 1,000 ML IV SCH (01:06)
[2019-04-09] MEDS: PIPERACILLIN/TAZOBACTAM 3.375 GM in DEXTROSE 5% 100 ML IV SCH ×3 (01:28→19:45)
[2019-04-09] MEDS ORDERED: VANCOMYCIN HCL 1,250 MG in SODIUM CHLORIDE 0.9% 250 ML IV ONE (07:45)
[2019-04-09] MEDS: MAGNESIUM OXIDE 400 MG TAB PO SCH ×2 (07:54→20:49)
[2019-04-09] MEDS: ONDANSETRON INJ 2 MG/ML 2 ML VIAL IV PRN (07:54)
[2019-04-09] MEDS: FINASTERIDE 5 MG TAB PO SCH (07:55)
[2019-04-09 07:57] LABS: Basophils # (auto) 0.02 K/uL (0-0.2); Basophils % (auto) 0.6 %; Eosinophils # (auto) 0.05 K/uL (0-0.5); Eosinophils % (auto) 1.4 %; Hematocrit (blood only) 33.7 % (42-52); Hemoglobin 11.3 g/dL (14.0-18.0); Immature Granulocytes # (auto) 0.01 K/uL (0.00-0.02); Immature Granulocytes % (auto) 0.3 %; Lymphocytes # (auto) 0.82 K/uL (1.2-3.4); Lymphocytes % (auto) 23.8 %; Mean Corpuscular Hgb Conc 33.5 g/dL (32-36); Mean Corpuscular Volume 92.8 fL (80-100); Monocytes # (auto) 0.67 K/uL (0.11-0.59); Monocytes % (auto) 19.4 %; Neutrophils # (auto) 1.88 K/uL (1.4-6.5); Neutrophils % (auto) 54.5 %; Platelet Count 150 K/uL (130-400); RDW Coefficient of Variation 13.7 % (11.5-14.5); RDW Standard Deviation 46.9 fL (36.4-46.3); Red Blood Count 3.63 M/uL (4.7-6.1); White Blood Count 3.45 K/uL (4.8-10.8)
--- NOTE | 2019-04-09 08:28 | Pharmacy Report ---
Pharmacy Abx Initial Consult - Date of Service April 09, 2019 - Pharmacy Dosing Scope Date of Consult: 04/08/19 Consultation requested by: Dr. Callie Castellanos Pharmacy is consulted to initiate Vancomycin + Zosyn IV dosing therapy, order appropriate labs and adjust drug dose/frequency. - Subjective The patient is a 78 year old M admitted on 04/08/19 12:59. - Objective Height: 5 ft 10 in Weight: 87 kg Vital Signs (Past 12hrs): Vital Signs Temp Pulse Resp BP Pulse Ox 04/09/19 07:24 36.5 C 59 L 16 102/66 99 04/08/19 23:04 36.6 C 58 L 20 107/66 97 Lab Results (24hrs): Laboratory Tests (24 Hours) 04/09/19 04/08/19 04/08/19 07:18 12:28 12:28 WBC 3.45 L Neut # (Auto) 1.88 ESR 27 H Creatinine 2.36 H Est Cr Clr Drug Dosing 27.1 C-Reactive Protein 0.32 H 04/08/19 12:28 WBC 4.32 L Neut # (Auto) 2.87 ESR Creatinine Est Cr Clr Drug Dosing C-Reactive Protein Micro Results: 04/08/19 16:40 Gram Stain - Final Foot Aerobic and Anaerobic Culture - Pending 04/08/19 12:28 Aerobic Blood Culture - Pending Blood Anaerobic Blood Culture - Pending 04/08/19 12:14 Aerobic Blood Culture - Pending Blood Anaerobic Blood Culture - Pending - Risk Factors for Resistance * Hospitalization for 48 hours or more within the past 90 days * Antimicrobial use within the last 90 days: Failed cipro + bactrim - Assessment & Plan Assessment * 78 year old M initiated on IV Vancomycin + Zosyn for Left foot/toes osteomyelitis * Baseline renal function is unknown but appears to be ~1.4 mg/dl from 2016. * Scr currently 2.36 mg/dl * Patient receiving Vancomycin + Zosyn. This combination has an additive risk of AYAH as compared to either drug used as monotherapy. De-escalation is recommended as soon as clinically warranted to prevent AYAH. * Initial gram stain is showing gram positive cocci in foot cultures. Plan Vancomycin IV * Estimated PK Parameters: Vd 0.6 L/kg, Robin 0.027 hr-1, t1/2 25.7hr * Loading dose: 1,750 mg (20 mg/kg) * Maintenance dose: 1,250 mg IV (15 mg/kg) IV Q20hrs. Will need to maintain aggressive trough levels for bone infection and penetration to foot. Will need to decrease dosing interval as Scr improves. * Goal trough level for Bone/Joint : 15 to 20 mcg/mL Piperacillin/tazobactam * 4.5 g bolus administered over 30 minutes, then 3.375 g IV extended infusion every 8 hours for CrCl greater than 20 mL/min Pharmacy will continue to follow and will adjust dose/frequency as necessary. Thank you.
[2019-04-09] MEDS: INSULIN ASPART 100 UNITS/ML 3 ML PEN SC SCH ×4 (08:51→20:49)
[2019-04-09] MEDS: INSULIN GLARGINE SOLOSTAR 100 UNITS/ML 3 ML PEN SC SCH ×2 (08:52→20:51)
[2019-04-09 09:05] LABS: BUN Creatinine Ratio 23.7 (10-20); Calcium 7.8 mg/dl (8.5-10.1); Creatinine Clr Calc Pharmacy 34.9 ml/min; Est GFR (African American) 40.3; Est GFR (Non-African American) 34.8; Potassium 4.5 mmol/L (3.5-5.1)
[2019-04-09] MEDS: OXYCODONE HCL IR 5 MG TAB (IMMEDIATE RELEASE) PO PRN (15:54)
[2019-04-09] MEDS ORDERED: PROPOFOL IV EMULSION 10 MG/ML 20 ML VIAL IV ONE (17:28)
[2019-04-09] MEDS ORDERED: LIDOCAINE HCL 2% 2 ML VIAL/AMP(20MG/ML) INFIL ONE (17:28)
[2019-04-09] MEDS ORDERED: fentaNYL citrate 100 MCG/2 ML VIAL ONE ×2 (17:28→18:23)
[2019-04-09] MEDS ORDERED: BUPIVACAINE 0.5 % 5 MG/1 ML MPF 30ML VIAL ONE (17:42)
[2019-04-09] MEDS ORDERED: BACITRACIN INJ 50,000 UNIT VIAL ONE (17:46)
[2019-04-09] MEDS ORDERED: LIDOCAINE HCL 1% 20 ML VIAL ONE (17:46)
--- NOTE | 2019-04-09 17:49 | Anesthesiology Consultation ---
Date of Service April 09, 2019 Assessment & Plan Chart Review Chart Review: Acceptable Risk for Surgery and Patient NOT seen in Pre Admission Testing Consults Requested none ASA ASA3 Proposed Anesthesia Anesthesia Type: MAC Risk / Benefits Reviewed With: PT / POA / Parent / Guardian, Accepts Plan and Informed Consent Obtained History Surgery Operation Date: 04/09/19 09:30 Proposed Procedures p Left Foot Wound Debridement with Skin Graft Application - Max Anne Height/Weight Height: 5 ft 10 in Weight: 87 kg Allergies Allergy/AdvReac Type Severity Reaction Status Date / Time No Known Allergies Allergy Verified 02/10/19 10:55 Medications Home Medications Medication Instructions Recorded Confirmed Last Taken finasteride [Proscar] 5 mg PO QAM 02/10/19 04/08/19 04/07/19 glimepiride 2 mg PO BID 02/10/19 04/08/19 04/07/19 ibuprofen 600 mg PO Q6H PRN 02/10/19 04/08/19 04/07/19 lisinopril 5 mg PO QPM 02/10/19 04/08/19 04/07/19 magnesium 250 mg PO BID 02/10/19 04/08/19 04/07/19 metformin 500 mg PO BID 02/10/19 04/08/19 04/07/19 acetaminophen-codeine 1 tab PO Q8H PRN 04/08/19 04/08/19 04/08/19 07:00 ciprofloxacin HCl 500 mg PO BID 04/08/19 04/08/19 04/07/19 sulfamethoxazole-trimethoprim 1 tab PO BID 04/08/19 04/08/19 04/07/19 Active Medications Generic Name Dose Route Start Last Admin Trade Name Freq PRN Reason Stop Dose Admin Diphenhydramine HCl 25 mg 04/09/19 00:06 04/09/19 01:27 Benadryl Capsule PO 05/09/19 00:05 25 mg HS PRN Administration Insomnia Finasteride 5 mg 04/09/19 09:00 04/09/19 07:55 Proscar PO 05/09/19 08:59 5 mg QAM NIMESH Administration Piperacillin Sod/Tazobactam 115 mls @ 28.75 mls/hr 04/08/19 18:00 04/09/19 1 4:34 Sod 3.375 gm/ Dextrose IV 04/18/19 17:59 Infused Q8H [facility] Infusion Protocol Insulin Aspart 0 units 04/08/19 16:30 04/09/19 17:10 Novolog Flexpen SC 05/08/19 16:29 Not Given ACHS NIMESH Insulin Glargine 5 units 04/08/19 21:00 04/09/19 08:52 Lantus Solostar Pen SC 05/08/19 20:59 5 units BID NIMESH Administration Lisinopril 5 mg 04/08/19 21:00 04/08/19 20:32 Zestril PO 05/08/19 20:59 5 mg QPM NIMESH Administration Magnesium Oxide 400 mg 04/08/19 21:00 04/09/19 07:54 Mag-Ox PO 05/08/19 20:59 400 mg BID NIMESH Administration Ondansetron HCl 4 mg 04/08/19 14:32 04/09/19 07:54 Zofran IV 05/08/19 14:31 4 mg Q6H PRN Administration Nausea And Vomiting Oxycodone HCl 5 mg 04/08/19 14:32 04/09/19 15:54 Roxicodone Immediate Rel PO 04/22/19 14:31 5 mg Q4H PRN Administration Pain NPO Date Last Intake of Fluids: 04/09/19 Time Last Intake of Fluids: 08:00 Date Last Intake of Solids: 04/09/19 Time Last Intake of Solids: 08:00 Past Medical History Medical History CKD (chronic kidney disease) Diabetic peripheral neuropathy HLD (hyperlipidemia) BPH (benign prostatic hyperplasia) DVT (deep venous thrombosis) 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-NO ISSUES SINCE Diabetes mellitus, type 2 Hypertension Exercise / Class Metabolic Activity III < 4 Walking/Shop/Light housework Past Family History Family History Brother Family hx of colon cancer Other History of colonoscopy Past Surgical History Surgical History Fusion of spine LUMBAR-2012 H/O excision of mass CYST REMOVAL VERTEBRAE H/O foot surgery LEFT 12/2018 [facility]-POST OP INFECTION DEVELOPED History of colonoscopy X MULTIPLE History of total knee replacement R/L Past Anesthesia History No Hx of Anesthesia Complications and No Family Hx of Anesthesia Complications History of PONV No Hx of PONV and No Hx of Motion Sickness Social History Smoking Status: Never smoker Do You Dip or Chew Tobacco: No Hx Alcohol Use: No Hx Substance Use: No substance use type: does not use Physical Exam Vital Signs Last Vital Signs Temp 36.5 C 04/09/19 15:15 Pulse 59 L 04/09/19 15:15 Resp 16 04/09/19 15:15 BP 117/73 04/09/19 15:15 Pulse Ox 98 04/09/19 15:15 Constitutional + obese ENMT Mouth: no dentition abnormality Thyromental Distance: > or= 3.5 Finger Breadths Mallampati Class: II Neck normal visual inspection and trachea midline; neck extension not limited Respiratory normal respiratory effort Auscultation: lungs clear to auscultation bilaterally Cardiovascular Rate/Rhythm: regular rate and regular rhythm Heart Sounds: no murmur Vessels: no carotid bruit Musculoskeletal Spine: normal cervical ROM Neurologic moves all extremities Motor/Sensory: + sensory deficit (fingers) Psychiatric Orientation: alert and oriented x 3 Testing Laboratory Results 04/09/19 07:18 04/09/19 07:18 PT 10.8 Seconds (9.0-12.0) 04/08/19 12:28 INR 1.1 (0.9-1.1) 04/08/19 12:28 APTT 26.0 Seconds (21.0-31.0) 04/08/19 12:28 Urine Color Yellow 04/08/19 15:30 Urine Appearance Clear (Clear) 04/08/19 15:30 Urine pH 5.0 (4.5-7.5) 04/08/19 15:30 Ur Specific Sontag 1.025 (1.000-1.030) 04/08/19 15:30 Urine Protein Negative (Negative) 04/08/19 15:30 Urine Glucose (UA) Negative (Negative) 04/08/19 15:30 Urine Ketones Trace (Negative) H 04/08/19 15:30 Urine Nitrite Negative (Negative) 04/08/19 15:30 Ur Leukocyte Esterase Negative (Negative) 04/08/19 15:30 04/08/19 12:28 Aerobic Blood Culture - Preliminary Blood No growth in Aerobic bottle after 24 hours. Anaerobic Blood Culture - Preliminary No growth in Anaerobic bottle after 24 hours. 04/08/19 12:14 Aerobic Blood Culture - Preliminary Blood No growth in Aerobic bottle after 24 hours. Anaerobic Blood Culture - Preliminary No growth in Anaerobic bottle after 24 hours. 04/08/19 16:40 Gram Stain - Final Foot Aerobic and Anaerobic Culture - Preliminary No growth to date. 04/09/19 04/09/19 04/09/19 17:34 16:49 11:26 POC Glucose 109 H 111 H 136 H 04/09/19 07:28 POC Glucose 77 Electrocardiogram Date: 04/08/19 Findings: + NSR @ (at 68) Chest X-Ray Date: 04/08/19 Findings: + NAD
--- NOTE | 2019-04-09 17:59 | History & Physical Bridge Note ---
Date of Service April 09, 2019 History & Physical Bridge Note I have examined the patient, reviewed the History & Physical and in the interval since the performance of the History & Physical I have noted the following changes of clinical significance: he has pain again to plantar left foot. I sheron evaluate under fluroscopy and take any exuberant bone from the fifth metatarsal seen in traoperatively in addition to applying a theraskin graft to the 4th digit of the left foot. He agrees to this plan. Consent obtained. All RBCA explained in detail previously.
[2019-04-09] MEDS ORDERED: KETAMINE HCL INJ 50 MG/ML 10 ML VIAL ONE (18:26)
--- NOTE | 2019-04-09 19:02 | Post Operative Brief Note ---
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
--- NOTE | 2019-04-09 19:07 | Operative Report ---
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 He was examined and noted to have pain to the plantar left foot. This pain was not present yesterday. Thus it was deemed warranted to perform a concomitant fifth ray debridement of exuberant bone performed from his previous surgery. He also agreed to the graft application of the fourth digit. All risk benefits complications and alternatives were explained to the patient and he elects to proceed with this procedure. No guarantees to outcome were given. He was taken to the operating room put in the table normal supine position. Monitored anesthesia care was administered. A local field block of 20 cc of half percent Marcaine plain and 2% lidocaine plain was administered to the left foot. A timeout was performed. The left lower ext remity was prepped and draped in normal sterile fashion. Attention was directed to the wound on the lateral fourth digit at the distal interphalangeal joint. A full-thickness debridement was performed sharply using an excisional debridement with a #15 blade. Healthy bleeding surrounding tissue was noted. Exposed capsule was noted. No purulence was present. Site was flushed with copious amounts of normal sterile saline by hand with a bacitracin mix. Normal sterile saline was then used to clean the area. A theraskin graft was then applied to the area and secured using 3-0 Prolene. Next attention was directed laterally to the pinhead sized wound to the lateral foot where incision was made dissection carried down to the level of the bone. Previous site of surgical amputation was noted to be exuberant with significant plantar exostosis to the previous amputation site. Exuberant bone was removed using Lowery. Smooth congruous surface was achieved. The angle of the cut was maintained from dorsal distal to plantar proximal. No purulence was noted. Healthy bleeding tissue was encountered. No sinus tracts or abscesses were encountered. The site was flushed with copious amounts of normal sterile saline combined with bacitracin. The site was closed with 4-0 Vicryl plus and 3-0 Prolene in a layered fashion. A dry sterile dressing was applied to the left lower extremity. He tolerated the anesthesia procedure well. He was transported to PACU with vital signs stable neurovascular status intact left lower extremity. Dressing is to be left in place until I evaluate him tomorrow for rounds. He should remain heel weightbearing to the left lower extremity only as needed to get up to go to the bathroom. Otherwise patient should remain nonweightbearing with the leg elevated in bed. I would continue [id number] antibiotics pending cultures. Further plans pending evaluation tomorrow. I attest to the content of the Intraoperative Record and any orders documented therein. Any exceptions are noted below.
[2019-04-09] MEDS ORDERED: IBUPROFEN 200 MG TAB PO PRN (19:16)
[2019-04-09] MEDS ORDERED: PROMETHAZINE HCL 12.5 MG in SODIUM CHLORIDE 0.9% 50 ML IV PRN (19:18)
[2019-04-09] MEDS ORDERED: ePHEDrine sulfate 50 MG/ML AMP IV PRN (19:18)
[2019-04-09] MEDS ORDERED: LABETALOL HCL IV 5 MG/ML 20ML IV PRN (19:18)
[2019-04-09] MEDS ORDERED: NALOXONE HCL 0.4 MG/1 ML VIAL/CARP IV PRN (19:18)
[2019-04-09] MEDS ORDERED: HYDROmorphone INJ 1 MG/ML SYRINGE IV PRN (19:18)
[2019-04-09] MEDS ORDERED: ATROPINE SULFATE 0.1 MG/ML 10ML SYR IV PRN (19:18)
[2019-04-09] MEDS ORDERED: ONDANSETRON INJ 2 MG/ML 2 ML VIAL IV PRN (19:18)
[2019-04-09] MEDS ORDERED: FLUMAZENIL 0.1 MG/1 ML 10 ML VIAL IV PRN (19:18)
--- NOTE | 2019-04-09 19:18 | Fluoroscopy Report ---
FL foot LT 2V CLINICAL HISTORY: LT. FOOT WOUND DEBRIDEMENT COMPARISON STUDY: CT scan dated 04/08/2019 FLUOROSCOPY TIME: 7 seconds. NUMBER OF FLUOROSCOPIC IMAGES: 1 FINDINGS: A single intraoperative fluoroscopic spot image demonstrates absence of the distal fifth me tatarsal. The fifth metatarsal phalanges are likely subluxed and overlying the other digits. IMPRESSION: Single fluoroscopic spot images demonstrating absence of the distal fifth metatarsal Electronically signed by: James Alva M.D. 04/09/2019 7:17 PM
--- NOTE | 2019-04-09 19:35 | Anesthesiology Progress Note ---
Date of Service April 09, 2019 Anesthesia Post Procedure Vital Signs Vital Signs: Temp Pulse Pulse Resp BP BP Pulse Ox 04/09/19 19:30 59 L 20 118/56 L 96 04/09/19 19:20 57 L 20 134/67 99 04/09/19 19:10 36.1 C L 63 13 125/76 96 04/09/19 17:41 36.6 C 62 15 127/69 99 04/09/19 15:15 36.5 C 59 L 16 117/73 98 04/09/19 11:51 36.6 C 82 16 131/63 92 04/09/19 07:24 36.5 C 59 L 16 102/66 99 04/08/19 23:04 36.6 C 58 L 20 107/66 97 04/08/19 20:04 36.5 C 80 20 114/68 98 Pain Intensity Left Foot: Pain Intensity: 0 Transfer of Care Handoff Completed per policy Notes Mental Status: alert / awake / arousable Patient Amnestic to Procedure: Yes Nausea / Vomiting: adequately controlled Pain: adequately controlled Airway Patency, RR, SpO2: stable & adequate BP & HR: stable & adequate Hydration State: stable & adequate Anesthetic Complications: no major complications apparent
[2019-04-09] MEDS: LISINOPRIL 5 MG TAB PO SCH (20:49)
[2019-04-09] MEDS ORDERED: GLIMEPIRIDE 2 MG TAB PO SCH (21:00)
--- NOTE | 2019-04-09 23:06 | Hospitalist Progress Note ---
Date of Service April 09, 2019 Assessment & Plan (1) Wound of foot: Patient with recent surgery on 25 February presenting with worsening pain and unhealing wound. Concern for osteomyelitis. Presently afebrile, hemodynamically stable, non-toxic in appearance -Admit to medical floor -Vancomycin and Zosyn -Podiatry consultation - Dr. Anne - appreciate assistance -Pain control with Oxycodone and Morphine PRN -Zofran PRN -Gentle IVF -Awaiting orthopedic procedure later today. (2) Diabetes: Fairly well controlled, AIC=7.2 in December -Hold oral agents while inpatient -Lantus 5u BID with ISS (3) Hypertension: Blood pressure well controlled -Continue Lisinopril -Continue to monitor (4) BPH (benign prostatic hyperplasia): Symptoms well controlled -Continue Proscar F/E/N- NSS at 100mL/hr x 2 liters, monitor electrolytes and correct as needed, continue PO mag, NPO for now Ppx - SCDs/TEDS Spent 25 minutes in management of patient. Subjective Patient reports feeling comfortable. Patient reports pain has been controlled and is awaiting surgery. Review of Systems Review of Systems: All systems reviewed & are unremarkable except as noted in HPI & below Physical Exam Physical Exam: General: patient resting comfortably, NAD, non-toxic in appearance, AA&O x 4 Skin: warm, dry, no rashes or lesions HEENT: NC/AT, PERRL, EOMI, no oropharyngeal lesions, neck supple, trachea midline, no LAD, no thyromegaly, no JVD +facial twitching at left eye - common for patient Heart: +S1/S2, regular, no m/r/g Lungs: equal air entry bilaterally, no rales/rhonchi/wheezes Abd: +BS, soft, NT/ND, no masses/organomegaly/ascites Ext: warm, 2+ pulses in UE/LE bilaterally, no clubbing/cyanosis or edema, dressing over left foot, 5th digit mildly red, tender, no discharge/odor, no crepitus/bullae or streaking Neuro: nonfocal, patient AA&O x 4, speech intact, no facial droop, moving all extremities on command with equal strength 5/5 Results & Data Vital Signs (Past 12 Hours) Vital Signs Temp Pulse Pulse Resp BP BP Pulse Ox 07/18/19 22:55 36.0 C L 71 18 119/67 94 04/09/19 21:26 36.3 C L 64 18 130/60 99 04/09/19 20:48 36.3 C L 53 L 16 122/74 99 04/09/19 20:19 36.4 C L 53 L 16 126/67 98 04/09/19 20:02 36.4 C L 54 L 16 130/68 98 04/09/19 19:45 36.5 C 58 L 18 130/72 97 04/09/19 19:35 36.1 C L 55 L 15 136/61 96 04/09/19 19:30 59 L 20 118/56 L 96 04/09/19 19:20 57 L 20 134/67 99 04/09/19 19:10 36.1 C L 63 13 125/76 96 04/09/19 17:41 36.6 C 62 15 127/69 99 04/09/19 15:15 36.5 C 59 L 16 117/73 98 04/09/19 11:51 36.6 C 82 16 131/63 92 PG Care Time/CCT Total # of Minutes Spent Total Time Spent with Patient: Total time spent is greater than 50% in coordination of care (as documented) at patient's floor/unit and/or counseling patient: (1) BPH (benign prostatic hyperplasia) Lower urinary tract symptom presence: symptoms absent Qualified Code(s): N40.0 - Benign prostatic hyperplasia without lower urinary tract symptoms (2) Diabetes Diabetes mellitus complication detail: with foot ulcer Diabetes mellitus complication status: with skin complications Diabetes mellitus penitentiary insulin use: with exterminator helper use Diabetes mellitus type: type 2 Qualified Code(s): E11.621 - Type 2 diabetes mellitus with foot ulcer; L97.509 - Non- pressure chronic ulcer of other part of unspecified foot with unspecified severity; Z79.4 - USP (current) use of insulin (3) Hypertension Hypertension type: essential hypertension Qualified Code(s): I10 - Essential (primary) hypertension
[2019-04-10] MEDS: PIPERACILLIN/TAZOBACTAM 3.375 GM in DEXTROSE 5% 100 ML IV SCH ×2 (00:56→10:28)
[2019-04-10] MEDS: OXYCODONE HCL IR 5 MG TAB (IMMEDIATE RELEASE) PO PRN ×3 (01:57→11:58)
[2019-04-10] MEDS ORDERED: VANCOMYCIN HCL 1,250 MG in SODIUM CHLORIDE 0.9% 250 ML IV SCH (04:00)
[2019-04-10] MEDS: ACETAMINOPHEN 325 MG TAB PO PRN ×2 (04:36→14:53)
--- NOTE | 2019-04-10 06:16 | Orthopedic Progress Note ---
Date of Service April 10, 2019 Assessment & Plan (1) Osteomyelitis: Status post left foot graft application along with fifth metatarsal exostectomy in the operating room postoperative day #1 -Dressing taken down today and show no local signs of infection at this time. Incision site is well coapted and stable. Graft site is viable at this time. He is mildly leukopenic at this time and white count does appear to be downtrending which is mildly concerning. Cultures to this point are negative for any growth. Cultures from the foot show rare gram-positive cocci on Gram stain. Blood cultures are negative for growth to date at this time. His temperature is mildly decreased at this time however his remaining vitals remained stable. From my standpoint he would be able to be discharged home with IV infusion of Orbactiv for gram positive coverage. He has taken 6 weeks of PO cipro for osteomyelitis under guidance of infectious disease as outpatient. I will defer to medicine on discharge planning given above abnormal lab findings. For now dressing should remain CDI until follow up. No need for dressing changes given post operative state as long as there is no further deterioration of labs. (2) Wound of foot: (3) Diabetes: Physical Exam Physical Exam: AAOx3. VSS are stable with exception of mild low temperature. Dressing to left lower extremity is clean dry and intact. Upon breakdown bleeding is well controlled. No local signs of infection exists. Sutures remain in place and graft is viable nature. There is no proximal streaking up the leg. No purulence from any of the incision sites noted. Results & Data Vital Signs (Past 12 Hours) Vital Signs Temp Pulse Pulse Resp BP Pulse Ox 04/09/19 22:55 36.0 C L 71 18 119/67 94 04/09/19 21:26 36.3 C L 64 18 130/60 99 04/09/19 20:48 36.3 C L 53 L 16 122/74 99 04/09/19 20:19 36.4 C L 53 L 16 126/67 98 04/09/19 20:02 36.4 C L 54 L 16 130/68 98 04/09/19 19:45 36.5 C 58 L 18 130/72 97 04/09/19 19:35 36.1 C L 55 L 15 136/61 96 04/09/19 19:30 59 L 20 118/56 L 96 07/18/19 19:20 57 L 20 134/67 99 04/09/19 19:10 36.1 C L 63 13 125/76 96 (1) Osteomyelitis Laterality: left Osteomyelitis location: foot Osteomyelitis type: unspecified type Qualified Code(s): M86.9 - Osteomyelitis, unspecified (2) Diabetes Diabetes mellitus type: type 2 Diabetes mellitus chcf insulin use: with chcf use Diabetes mellitus complication status: with skin complications Diabetes mellitus complication detail: with foot ulcer Qualified Code(s): E11.621 - Type 2 diabetes mellitus with foot ulcer; L97.509 - Non-pressure chronic ulcer of other part of unspecified foot with unspecified severity; Z79.4 - residential (current) use of insulin
[2019-04-10 07:47] LABS: Creatinine Clr Calc Pharmacy 42.3 ml/min; Est GFR (African American) 50.9; Est GFR (Non-African American) 43.9
[2019-04-10] MEDS: MAGNESIUM OXIDE 400 MG TAB PO SCH (07:57)
[2019-04-10] MEDS: FINASTERIDE 5 MG TAB PO SCH (07:57)
[2019-04-10] MEDS ORDERED: METFORMIN HCL 500 MG TAB PO SCH (08:00)
--- NOTE | 2019-04-10 08:29 | Hospitalist Progress Note ---
Date of Service April 10, 2019 Assessment & Plan (1) Wound of foot: Patient with recent surgery on 25 February presenting with worsening pain and unhealing wound. Concern for osteomyelitis. Presently afebrile, hemodynamically stable, non-toxic in appearance -Admit to medical floor -Vancomycin and Zosyn -Podiatry consultation - Dr. Anne - appreciate assistance -Pain control with Oxycodone and Morphine PRN -Zofran PRN -Gentle IVF -Awaiting orthopedic procedure later today. (2) Diabetes: Fairly well controlled, AIC=7.2 in December -Hold oral agents while inpatient -Lantus 5u BID with ISS (3) Hypertension: Blood pressure well controlled -Continue Lisinopril -Continue to monitor (4) BPH (benign prostatic hyperplasia): Symptoms well controlled -Continue Proscar F/E/N- NSS at 100mL/hr x 2 liters, monitor electrolytes and correct as needed, continue PO mag, NPO for now Ppx - SCDs/TEDS Spent 25 minutes in management of patient. Subjective pt seen and examined at the bedside. No acute event over night. Pt had graft rocedure yesterday of the left foot and tolerated well. Wound CDI.Afebrile. Review of Systems Review of Systems: All systems reviewed & are unremarkable except as noted in HPI & below Physical Exam Constitutional: well developed, well nourished and + obese Eyes: PERRL, conjunctivae normal, anicteric sclerae ENMT: external ear and nose normal, oropharynx normal Mouth: no dentition abnormality Mallampati Class: II Neck: trachea midline, no thyromegaly normal visual inspection and trachea midline; neck extension not limited Respiratory: normal respiratory effort, lungs clear to auscultation normal respiratory effort Auscultation: lungs clear to auscultation bilaterally Cardiovascular: RRR, no murmur, no edema Rate/Rhythm: regular rate and regular rhythm Heart Sounds: no murmur Vessels: no carotid bruit Chest (Breasts): normal inspection/palpation of breasts Gastrointestinal (Abdomen): normal bowel sounds, soft, nontender, no hepatosplenomegaly Musculoskeletal: no cyanosis or clubbing, extremities motor strength 5/5 Spine: normal cervical ROM Gait: + limp Skin: no rashes, warm and dry Neurologic: patellar DTR's 2+ bilat, sensation intact moves all extremities Motor/Sensory: + sensory deficit (fingers) Psychiatric: A+Ox3, euthymic affect Orientation: alert and oriented x 3 Genitourinary: no testicular masses, no penis abnormality Lymphatic: no cervical or axillary lymphadenopathy Results & Data Vital Signs (Past 12 Hours) Vital Signs Temp Pulse Pulse Resp BP Pulse Ox 04/10/19 07:23 36.6 C 65 20 121/66 98 04/09/19 22:55 36.0 C L 71 18 119/67 94 04/09/19 21:26 36.3 C L 64 18 130/60 99 04/09/19 20:48 36.3 C L 53 L 16 122/74 99 PG Care Time/CCT Total # of Minutes Spent Total Time Spent with Patient: Total time spent is greater than 50% in coordination of care (as documented) at patient's floor/unit and/or counseling patient: (1) BPH (benign prostatic hyperplasia) Lower urinary tract symptom presence: symptoms absent Qualified Code(s): N40.0 - Benign prostatic hyperplasia without lower urinary tract symptoms (2) Diabetes Diabetes mellitus complication detail: with foot ulcer Diabetes mellitus complication status: with skin complications Diabetes mellitus longterm insulin use: with longterm use Diabetes mellitus type: type 2 Qualified Code(s): E11.621 - Type 2 diabetes mellitus with foot ulcer; L97.509 - Non- pressure chronic ulcer of other part of unspecified foot with unspecified severity; Z79.4 - ferry terminal supervisor (current) use of insulin (3) Hypertension Hypertension type: essential hypertension Qualified Code(s): I10 - Essential (primary) hypertension
[2019-04-10] MEDS: INSULIN ASPART 100 UNITS/ML 3 ML PEN SC SCH ×2 (08:47→13:19)
[2019-04-10] MEDS: INSULIN GLARGINE SOLOSTAR 100 UNITS/ML 3 ML PEN SC SCH (08:47)
[2019-04-10] MEDS ORDERED: ENOXAPARIN INJ 30 MG/0.3 ML SYR SQ SCH (09:00)
--- NOTE | 2019-04-10 09:15 | Anesthesiology Progress Note ---
Date of Service April 10, 2019 Anesthesia Post Procedure Vital Signs Vital Signs: Temp Pulse Pulse Resp BP BP Pulse Ox 04/10/19 07:23 36.6 C 65 20 121/66 98 04/09/19 22:55 36.0 C L 71 18 119/67 94 04/09/19 21:26 36.3 C L 64 18 130/60 99 04/09/19 20:48 36.3 C L 53 L 16 122/74 99 04/09/19 20:19 36.4 C L 53 L 16 126/67 98 04/09/19 20:02 36.4 C L 54 L 16 130/68 98 04/09/19 19:45 36.5 C 58 L 18 130/72 97 04/09/19 19:35 36.1 C L 55 L 15 136/61 96 04/09/19 19:30 59 L 20 118/56 L 96 04/09/19 19:20 57 L 20 134/67 99 04/09/19 19:10 36.1 C L 63 13 125/76 96 04/09/19 17:41 36.6 C 62 15 127/69 99 04/09/19 15:15 36.5 C 59 L 16 117/73 98 04/09/19 11:51 36.6 C 82 16 131/63 92 Pain Intensity Left Foot: Pain Intensity: 0 Notes Mental Status: alert / awake / arousable and participated in evaluation Nausea / Vomiting: adequately controlled Pain: adequately controlled Airway Patency, RR, SpO2: stable & adequate BP & HR: stable & adequate Hydration State: stable & adequate
--- NOTE | 2019-04-10 14:54 | Hospitalist Progress Note ---
Date of Service April 10, 2019 Assessment & Plan (1) Wound of foot: Patient with recent surgery on 25 February presenting with worsening pain and unhealing wound. Concern for osteomyelitis. 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 On 04/09/2019 did a Graft Application left foot; Bone debridment 5th metatarsal, left foot(Left). Per recommendations antibiotics were stopped ( pt was for 6 weeks on cipro and bactrim). will reevaluate pt for antibiotics on 04/15/2019 in his office. -Stopped Vancomycin and Zosyn today -Pain control with Oxycodone and Morphine PRN -Zofran PRN -Gentle IVF -Awaiting orthopedic procedure later today. (2) Diabetes: Fairly well controlled, AIC=7.2 in December -Hold oral agents while inpatient -Lantus 5u BID with ISS (3) Hypertension: Blood pressure well controlled -Continue Lisinopril -Continue to monitor (4) BPH (benign prostatic hyperplasia): Symptoms well controlled -Continue Proscar F/E/N- NSS at 100mL/hr x 2 liters, monitor electrolytes and correct as needed, continue PO mag, NPO for now Ppx - SCDs/TEDS Spent 25 minutes in management of patient. Subjective Pt seen and examined at the bedside. He is resting in bed, and denies any pain. PO intake is better. Pt said he discussed his case with and he stated that margins of the wound are clear and there is no reason to continue antibiotics at this time. said thete he will reassess pt on 04/15 and at that point decide if pt needs to go back on the antibiotics. Pt denies fever, chills, chest pain, SOB, abdominal pain, frequency and urgency. Pt was informed that he is anemic and that he should follow up with his PCP if no improvement when she checks CBC again. We recommend to recheck CBC, CMP, CRP, and ESR in 7 days. Pt should also need to schedule colonoscopy to be determined if anemia is coming from chronic blood loss through his gut. Pt and his daughter agreed with a plan. Pt said at home he is going to use walker, and allowed him to use his left heal-touch surface when he ambulates. Review of Systems Review of Systems: All systems reviewed & are unremarkable except as noted in HPI & below Physical Exam Constitutional: well developed and well nourished Eyes: PERRL, conjunctivae normal, anicteric sclerae ENMT: external ear and nose normal, oropharynx normal Neck: trachea midline, no thyromegaly Respiratory: normal respiratory effort, lungs clear to auscultation Cardiovascular: RRR, no murmur, no edema Chest (Breasts): normal inspection/palpation of breasts Gastrointestinal (Abdomen): normal bowel sounds, soft, nontender, no hepatosplenomegaly Musculoskeletal: no cyanosis or clubbing, extremities motor strength 5/5 Gait: + limp stage 3 ulcer 4th toe on left foot; chronic osteomyelitis 5th metarsal, left foot Skin: no rashes, warm and dry Neurologic: patellar DTR's 2+ bilat, sensation intact Psychiatric: A+Ox3, euthymic affect Genitourinary: no testicular masses, no penis abnormality Lymphatic: no cervical or axillary lymphadenopathy Results & Data Vital Signs (Past 12 Hours) Vital Signs Temp Pulse Resp BP Pulse Ox 04/10/19 07:23 36.6 C 65 20 121/66 98 PG Care Time/CCT Total # of Minutes Spent Total Time Spent with Patient: Total time spent is greater than 50% in coordination of care (as documented) at patient's floor/unit and/or counseling patient: (1) BPH (benign prostatic hyperplasia) Lower urinary tract symptom presence: symptoms absent Qualified Code(s): N40.0 - Benign prostatic hyperplasia without lower urinary tract symptoms (2) Diabetes Diabetes mellitus complication detail: with foot ulcer Diabetes mellitus complication status: with skin complications Diabetes mellitus nursing 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
--- NOTE | 2019-04-10 15:11 | Discharge Summary ---
Date of Service April 10, 2019 Admission HPI Per Admitting Provider Mr Michael Mckinney is a pleasant 78yo C male with history of HTN, well controlled DM-II (Last A1C=7.2 in December 2018). Patient had surgery performed on his left 5th toe on 12 January 2019 for removal of a corn. 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 Anne. The surgery was well tolerated. The patient has been wearing a walking boot. He has home nursing and wound care QOD. He has been on Cipro and Bactrim for possible infection. He reports severe pain in the toe, difficulty with ambulation with pain from his toe to the heel. Also with unhealing wound. He denies fevers/chills/nausea/vomiting/discharge or foul odor from the toe. Does admit to some fatigue/malaise/poor appetite and unintentional 10-12# weight loss over the last 3 weeks. Case was discussed with Dr. Anne by ER staff - patient had debridement stage 3 ulcer 4th toe on left foot; chronic osteomyelitis 5th metarsal, left foot on 04/09/2019. S/p Procedure p Graft Application left foot; Bone debridment 5th metatarsal, left foot(Left) - by Dr. Max Anne Principal Diagnosis Left foot Stage 3 ulcer of 4th and 5th toe Discharge Exam Constitutional well developed, well nourished and + obese Eyes PERRL, conjunctivae normal, anicteric sclerae ENMT external ear and nose normal, oropharynx normal Mouth: no dentition abnormality Mallampati Class: II Neck trachea midline, no thyromegaly normal visual inspection and trachea midline; neck extension not limited Respiratory normal respiratory effort, lungs clear to auscultation normal respiratory effort Auscultation: lungs clear to auscultation bilaterally Cardiovascular RRR, no murmur, no edema Rate/Rhythm: regular rate and regular rhythm Heart Sounds: no murmur Vessels: no carotid bruit Chest (Breasts) normal inspection/palpation of breasts Gastrointestinal (Abdomen) normal bowel sounds, soft, nontender, no hepatosplenomegaly Musculoskeletal no cyanosis or clubbing, extremities motor strength 5/5 Spine: normal cervical ROM Gait: + limp Skin no rashes, warm and dry Neurologic patellar DTR's 2+ bilat, sensation intact moves all extremities Motor/Sensory: + sensory deficit (fingers) Psychiatric A+Ox3, euthymic affect Orientation: alert and oriented x 3 Genitourinary no testicular masses, no penis abnormality Lymphatic no cervical or axillary lymphadenopathy Discharge Data Allergies Allergy/AdvReac Type Severity Reaction Status Date / Time No Known Allergies Allergy Verified 02/10/19 10:55 Consultations 04/08/19 11:49 ED Decision to Admit Stat 04/08/19 14:32 Consult Podiatry Routine Procedures Performed Operation Date: 04/09/19 09:30 Actual Procedures p Graft Application left foot; Bone debridment 5th metatarsal, left foot(Left) - Max Anne Ordered Studies 04/08/19 11:45 CT foot LT wo con Stat 04/09/19 18:03 FL foot LT 2V Routine 04/09/19 18:04 FL fluoroscopy <1hr Routine Hospital Course (1) Wound of foot: Patient with recent surgery on 25 February presenting with worsening pain and unhealing wound. Concern for osteomyelitis. Presently afebrile, hemodynamic ally stable, non-toxic in appearance -Pt seen by , laundry helper for stage 3 ulcer 4th toe on left foot; chronic osteomyelitis 5th metarsal, left foot. On 04/09/2019 did a Graft Application left foot; Bone debridment 5th metatarsal, left foot(Left). Per recommendations antibiotics were stopped ( pt was for 6 weeks on cipro and bactrim). will reevaluate pt for antibiotics on 04/15/2019 in his office. -Stopped Vancomycin and Zosyn today -Pain control with Oxycodone and Morphine PRN -Zofran PRN -Gentle IVF -Awaiting orthopedic procedure later today. (2) Diabetes: Fairly well controlled, AIC=7.2 in December -Hold oral agents while inpatient -Lantus 5u BID with ISS (3) Hypertension: Blood pressure well controlled -Continue Lisinopril -Continue to monitor (4) BPH (benign prostatic hyperplasia): Symptoms well controlled -Continue Proscar F/E/N- NSS at 100mL/hr x 2 liters, monitor electrolytes and correct as needed, continue PO mag, NPO for now Ppx - SCDs/TEDS Spent 25 minutes in management of patient. Total Time Total Time Spent Total Time Spent (In Minutes): >30 min Discharge Plan Discharge Items Patient Disposition: Home - Home Health Services Reason For Visit: OSTEOMYELITIS, UNHEALING WOUND Condition: Good Discharge Goals: Decrease discomfort, Improve disease control and Improve function Activity: Resume your previous activity Activity Comment: partial weight bearing on the left Non-emergency contact: Primary Care Provider Follow-up/Referrals: Beny Araujo MD [Primary Care Provider] - Diet: Carb Consistent or DM2 and Heart Healthy Addtl Provider Instructions: Please call 911 or go to the nearest ER if you have pain , [phone] F and or any other issue.Follow u with on 04/15/2019 Prescriptions: Continued acetaminophen-codeine 300-30 mg tablet 1 tab PO Q8H PRN (Reason: Pain) RF: 0 glimepiride 2 mg Tablet 2 mg PO BID RF: 0 lisinopril 5 mg Tablet 5 mg PO QPM RF: 0 finasteride [Proscar] 5 mg Tablet 5 mg PO QAM RF: 0 metformin 500 mg Tablet 500 mg PO BID RF: 0 magnesium 250 mg Tablet 250 mg PO BID RF: 0 ibuprofen 200 mg Tablet 600 mg PO Q6H PRN (Reason: Pain) RF: 0 Discontinued ciprofloxacin HCl 500 mg tablet 500 mg PO BID RF: 0 sulfamethoxazole-trimethoprim 800-160 mg tablet 1 tab PO BID RF: 0 Stand-Alone Forms: [facility] Discharge Orders: Discharge Order (Routine); Ordered 04/10/19 Ordered By: Elina Vásquez Admission Data Admit Date/Time: 04/08/19 12:59 Attending Provider: Elina Vásquez Admit Provider: Kasia Castellanos Primary Care Provider: Beny Araujo Other Providers: Kasia Castellanos ; Max Anne Service: Medical
[2019-04-10] MEDS ORDERED: VANCOMYCIN TROUGH ONE (23:30)
== END 2019-04-10 16:55 | disposition home health service (06) | DRG 629 ==
LOC: ED 10:38 → 2N 12:59 → SUATTDRO 12:59 → 2N 13:15
DX: E11.69 Type 2 diabetes mellitus with other specified complication; Z79.84 Long term (current) use of oral hypoglycemic drugs; M86.672 Other chronic osteomyelitis, left ankle and foot; L97.529 Non-pressure chronic ulcer of other part of left foot with unspecified severity; N40.0 Benign prostatic hyperplasia without lower urinary tract symptoms; I10 Essential (primary) hypertension; E11.621 Type 2 diabetes mellitus with foot ulcer; Z79.899 Other long term (current) drug therapy; Z66 Do not resuscitate